=== PATIENT | female | born 1930 | race Asian ===

== ENCOUNTER → 2020-02-18 | Outpatient (CLI) | payer MEDICARE | END | disposition home or self-care (01) | LOC: CFH 11:06 | PROVIDERS: ATTEND Internal Medicine Hematology & Oncology | DX: C50.311 Malignant neoplasm of lower-inner quadrant of right female breast (principal); R92.2 Inconclusive mammogram; N63.21 Unspecified lump in the left breast, upper outer quadrant; N60.02 Solitary cyst of left breast | CPT/HCPCS: 76641 ==

== ENCOUNTER → 2020-09-03 | Outpatient (CLI) | payer MEDICARE | END | disposition home or self-care (01) | LOC: PETCFH 13:12 | PROVIDERS: ATTEND Internal Medicine Hematology & Oncology | DX: C34.81 Malignant neoplasm of overlapping sites of right bronchus and lung (principal); C50.311 Malignant neoplasm of lower-inner quadrant of right female breast; M81.0 Age-related osteoporosis without current pathological fracture; I31.3 Pericardial effusion (noninflammatory); R59.0 Localized enlarged lymph nodes; R91.8 Other nonspecific abnormal finding of lung field; R16.0 Hepatomegaly, not elsewhere classified; Z79.811 Long term (current) use of aromatase inhibitors; Z79.899 Other long term (current) drug therapy | CPT/HCPCS: 78815; A9552 ==